=== PATIENT | female | born 1955 | race African-American/Black ===

== ENCOUNTER 2017-03-06 09:22 | Outpatient (CLI) | payer OTHER ==
--- NOTE | 2017-03-06 11:12 | ULT ---
LEFT DIAGNOSTIC MAMMOGRAM LEFT BREAST ULTRASOUND: Date: 03/06/17 HISTORY: Bilateral baseline screening mammogram performed on 12/04/16 at [facility] in [place]. A diagnostic ma mmogram was recommended, which is being performed today. FINDINGS: Correlation is made with the baseline screening mammogram of 12/04/16. Heterogeneous breast density is present, which may reduce the sensitivity of mammography. The 17.0 mm mass in the lower inner quadrant of the left breast is stable. Sonographic evaluation of this mass demonstrates a well circumscribed, somewhat lobulated, complex mass, measuring 1.6 x 1.3 x 1.0 cm. Since there is stability of the mass on the mammogram since 12/04/16 and no suspicious chung racteristics on the breast ultrasound, this finding is probably benign and should be followed up in 6 months. IMPRESSION: BIRADS 3: Probably Benign Finding - Short-Interval Follow-Up Suggested A left diagnostic mammogram and ultrasound are recommended in 6 months. These studies were interpreted in consultation with Dr. Walter Cho, who concurs. The facility will notify the patient of the need for additional imaging services. POS: [facility]
== END 2017-03-06 09:23 | disposition home or self-care (01) ==
LOC: MAMMO 09:22
PROVIDERS: ATTEND Family Medicine
DX: R92.8 Other abnormal and inconclusive findings on diagnostic imaging of breast (principal)
CPT/HCPCS: G0206-LT

== ENCOUNTER 2017-09-05 09:35 | Outpatient (CLI) | payer MEDICARE | END 2017-09-05 09:36 | disposition home or self-care (01) | LOC: BICMAMMO 09:35 | PROVIDERS: ATTEND Family Medicine | DX: R92.8 Other abnormal and inconclusive findings on diagnostic imaging of breast (principal); N63.20 Unspecified lump in the left breast, unspecified quadrant | CPT/HCPCS: 76642; 77065; G0279 ==

== ENCOUNTER 2018-03-08 09:29 | Outpatient (CLI) | payer MEDICARE, MEDICAID ==
--- NOTE | 2018-03-08 14:28 | ULT ---
ULTRASOUND OF LEFT BREAST: Date: 03/08/18 HISTORY: Breast mass. COMPARISON: Ultrasound from 09/05/17 and 03/06/17. FINDINGS: There is a similar size to the left breast mass measuring up to 1.5 cm. This hypoechoic mass has mild acoustic shadowing with lobular margins. This is a solid mass. IMPRESSION: BIRADS Category 4: Suspicious. Ultrasound guided biopsy recommended. Findings discussed with Dr. Oc Ness's nurse, at 1020 hours. CODE CR. POS: [facility]
== END 2018-03-08 09:30 | disposition home or self-care (01) ==
LOC: BICMAMMO 09:29
PROVIDERS: ATTEND Family Medicine
DX: R92.8 Other abnormal and inconclusive findings on diagnostic imaging of breast (principal)
CPT/HCPCS: 76642; 77066; G0279

== ENCOUNTER → 2018-03-12 | Day surgery (SDC) | payer MEDICARE, MEDICAID ==
--- NOTE | 2018-03-14 15:50 | MMO ---
ULTRASOUND DIRECTED BIOPSY OF LEFT BREAST MASS AT THE 9 O'CLOCK POSITION OF THE LEFT BREAST: History: Nodular density noted on recent mammogram. FINDINGS: Real-time imaging of the left breast shows the presence of a lobulated but circumscribed 12 mm nodule at approximately the 8-9 o'clock position of the left breast. After informed consent was obtained, the patient was prepped and draped in the normal sterile fashion . Local anesthesia was obtained with 1% Xylocaine mixed with sodium bicarb. Using a 14 gauge biopsy g un a total of 4 core biopsies were performed of the lesion. The patient tolerated the procedure well and there are no immediate complications of the procedure. Hemostatis was obtained without difficulty . Subsequently, a post biopsy mammogram was obtained. This shows that the lesion in question does corre spond to the mammographic abnormality. IMPRESSION: Ultrasound directed biopsy of a left breast mass x 4, using a 14 gauge biopsy gun. ADDENDUM: Pathology results have been obtained. 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 POS: [facility]
== END ==
LOC: BICULT 12:24
PROVIDERS: ATTEND Family Medicine
PROC: 0HBU3ZX Excision of Left Breast, Percutaneous Approach, Diagnostic (ICD-10-PCS; principal; 2018-03-12)
DX: N63.24 Unspecified lump in the left breast, lower inner quadrant (principal); Z79.899 Other long term (current) drug therapy
CPT/HCPCS: 19083; 88305

== ENCOUNTER 2019-03-07 10:23 | Outpatient (CLI) | payer MEDICARE, MEDICAID ==
--- NOTE | 2019-03-07 11:56 | MMO ---
Bilateral MAMMO Bilat Screen [facility]. CLINICAL HISTORY: Patient is 63 years old and is seen for screening. The patient has no family history of breast cancer. The patient has no personal history of cancer. The patient has a history of left Ultrasound Guided Core Biopsy in February, - fibroadenoma. VIEWS: The views performed were: bilateral craniocaudal with tomosynthesis and bilateral mediolateral oblique with tomosynthesis. FILMS COMPARED: The present examination has been compared to prior imaging studies performed at [facility] on 09/05/2017 and 03/08/2018, at [facility] on 12/04/2016, and at [facility] on 03/06/2017. This study has been interpreted with the assistance of computer-aided detection. MAMMOGRAM FINDINGS: There are scattered fibroglandular densities. Finding 1: There is a stable lobular mass with associated biopsy clip seen in the lower-inner region of the left breast. Finding 2: There is a stable intramammary lymph node seen in the outer region of the left breast. Finding 3: There are benign appearing calcifications seen in both breasts. There are no suspicious masses, suspicious calcifications, or new areas of architectural distortion. IMPRESSION: THERE IS NO MAMMOGRAPHIC EVIDENCE OF MALIGNANCY. A ROUTINE FOLLOW-UP MAMMOGRAM IN 1 YEAR IS RECOMMENDED. THE RESULTS OF THIS EXAM WERE SENT TO THE PATIENT. ACR BI-RADS Category 2 - Benign finding MAMMOGRAPHY NOTE: 1. A negative mammogram report should not delay a biopsy if a dominant of clinically suspicious mass is present. 2. Approximately 10% to 15% of breast cancers are not detected by mammography. 3. Adenosis and dense breasts may obscure an underlying neoplasm. Reported by: KAUR CONTI MD Electonically Signed: [id number]
== END 2019-03-07 10:24 | disposition home or self-care (01) ==
LOC: BICMAMMO 10:23
PROVIDERS: ATTEND Family Medicine
DX: Z12.31 Encounter for screening mammogram for malignant neoplasm of breast (principal)
CPT/HCPCS: 77063; 77067

== ENCOUNTER 2020-03-11 12:28 | Outpatient (CLI) | payer MEDICARE, MEDICAID ==
--- NOTE | 2020-03-11 15:36 | MMO ---
Bilateral MAMMO Bilat Screen [facility]. CLINICAL HISTORY: Patient is 64 years old and is seen for screening. The patient has no family history of breast cancer. The patient has no personal history of cancer. The patient has a history of left Ultrasound Guided Core Biopsy in February, - fibroadenoma. VIEWS: The views performed were: bilateral craniocaudal with tomosynthesis and bilateral mediolateral oblique with tomosynthesis. FILMS COMPARED: The present examination has been compared to prior imaging studies performed at [facility] on 09/05/2017, 03/08/2018 and 03/07/2019, and at [facility] on 03/06/2017. This study has been interpreted with the assistance of computer-aided detection. MAMMOGRAM FINDINGS: There are scattered fibroglandular densities. Finding 1: There are stable benign appearing calcifications seen in both breasts. Finding 2: There is a stable lobular mass with associated biopsy clip seen in the left breast. Finding 3: There is a stable intramammary lymph node seen in the left breast. There are no suspicious masses, suspicious calcifications, or new areas of architectural distortion. IMPRESSION: THERE IS NO MAMMOGRAPHIC EVIDENCE OF MALIGNANCY. A ROUTINE FOLLOW-UP MAMMOGRAM IN 1 YEAR IS RECOMMENDED. THE RESULTS OF THIS EXAM WERE SENT TO THE PATIENT. ACR BI-RADS Category 2 - Benign finding MAMMOGRAPHY NOTE: 1. A negative mammogram report should not delay a biopsy if a dominant of clinically suspicious mass is present. 2. Approximately 10% to 15% of breast cancers are not detected by mammography. 3. Adenosis and dense breasts may obscure an underlying neoplasm. Reported by: DILIA PETIT MD Electonically Signed: [id number]
== END 2020-03-11 12:29 | disposition home or self-care (01) ==
LOC: BICMAMMO 12:28
PROVIDERS: ATTEND Family Medicine
DX: Z12.31 Encounter for screening mammogram for malignant neoplasm of breast (principal)
CPT/HCPCS: 77063; 77067

== ENCOUNTER 2021-09-29 10:23 | Outpatient (CLI) | payer MEDICARE | END 2021-09-29 10:24 | disposition home or self-care (01) | LOC: BICMAMMO 10:23 | PROVIDERS: ATTEND Family Medicine | DX: Z12.31 Encounter for screening mammogram for malignant neoplasm of breast (principal) | CPT/HCPCS: 77063; 77067 ==

== ENCOUNTER 2024-04-16 10:44 | Outpatient (CLI) | payer MEDICARE | END 2024-04-16 10:45 | disposition home or self-care (01) | LOC: BICMAMMO 10:44 | PROVIDERS: ATTEND Physician Assistant | DX: Z12.31 Encounter for screening mammogram for malignant neoplasm of breast (principal) | CPT/HCPCS: 77063; 77067 ==

== ENCOUNTER 2024-11-11 09:16 | Outpatient (CLI) | payer OTHER, MEDICAID | END 2024-11-11 09:17 | disposition home or self-care (01) | LOC: BICMAMMO 09:16 | PROVIDERS: ATTEND Physician Assistant | DX: Z78.0 Asymptomatic menopausal state (principal) | CPT/HCPCS: 77080 ==